=== PATIENT | male | born 1940 | race Caucasian/White ===

== ENCOUNTER 2022-03-18 13:35 | Emergency (ER) | payer OTHER, MEDICARE ==
[2022-03-18 13:42] VITALS: TEMP 98.1; BMI 18.4
[2022-03-18 14:39] LABS: HEMATOCRIT 45.2 % (35.4-49); HEMOGLOBIN 15.6 G/dL (11.7-16.9); MCHC 34.4 g/dl (32.0-35.9); MEAN CELL VOLUME 101.9 fl (80-96); MEAN PLT VOLUME 8.7 fl (7.5-11.1); PLATELET COUNT 202.9 10^3/uL (134-434); RBC 4.44 10^6/uL (4.00-5.60); RDW 14.3 % (11.9-15.9)
[2022-03-18 14:47] LABS: ALBUMIN 3.9 g/dl (3.4-5.0); BILIRUBIN,TOTAL 0.7 mg/dl (0.2-1); CREATININE 1.9 mg/dl (0.55-1.3); MAGNESIUM 2.4 mg/dL (1.8-2.4); TOT PROT 7.7 g/dl (6.4-8.2)
[2022-03-18 15:30] LABS: PLATELET ESTIMATE ADEQUATE
[2022-03-18] MEDS ORDERED: SODIUM CHLORIDE 0.9% 500 ML INFUS.BAG IV ONE (16:15)
[2022-03-18 17:10] VITALS: BP 122/64; PULSE 88
== END 2022-03-18 17:05 | disposition home or self-care (01) ==
LOC: FER 13:35
DX: J10.1 Influenza due to other identified influenza virus with other respiratory manifestations (principal); R05.9 Cough, unspecified
CPT/HCPCS: 0241U-QW; 36415; 71046-TC-FY; 80053; 83735; 84484; 85025; 93005; 99284-25